=== PATIENT | female | born 1975 | race Caucasian/White ===

== ENCOUNTER 2018-10-31 09:25 | Emergency (ER) | payer BC, OTHER ==
[~2018-10-31] VITALS: Ht 177.8 cm; Wt 70.3 kg
[2018-10-31 10:08] LABS: ABSOLUTE NEUTROPHILS 6.5 thou/uL (1.4-8.2); BASOPHILS 1.1 % (0.0-2.0); CALCIUM 8.6 mg/dL (8.5-10.1); CREATININE 0.9 mg/dL (0.6-1.0); EOSINOPHILS 1.9 % (0.0-3.0); HEMATOCRIT 42.5 % (37.0-47.0); HEMOGLOBIN 14.4 gm/dL (12.0-15.0); LYMPHOCYTES 19.8 % (24.0-44.0); MCH 31.4 pg (26.0-34.0); MCHC 33.8 g/dL (28.0-37.0); MCV 92.9 fL (80.0-100.0); PLATELET COUNT 308 thou/uL (150-400); POLYS 69.2 % (36.0-66.0); POTASSIUM 3.6 mmol/L (3.5-5.1); RBC 4.58 mil/uL (4.20-5.00); RDW 13.4 % (10.5-14.5); WBC 9.4 thou/uL (4.0-11.0)
[2018-10-31 10:14] LABS: ALBUMIN 3.3 g/dL (3.4-5.0); TOTAL BILIRUBIN 0.3 mg/dL (<0.1-1.0)
[2018-10-31 13:20] VITALS: BP 109/68
[2018-10-31] MEDS ORDERED: AUGMENTIN 875-1 EACH PO (13:20)
[2018-10-31] MEDS ORDERED: ULTRAM 50MG TAB50 MG PO (13:27)
--- NOTE | 2018-10-31 16:42 | EKG ---
[address] [address] ELECTROCARDIOGRAM REPORT Name: DAPHNECLAUDIACASTRO Gabo Room #: DEP [facility]#: [id number] ������������������ Admission: 10/31/18 ������������������ Attend Phys: Discharge: 10/31/18 ������������������ Date of : 79 Report #: [id number] ����������������������������������������������������������������� [id number] THIS REPORT FOR: //name// [facility] ED Test Date: 2018-10-31 Test Time: 10:08:17 Pat Name: CASTRO CENTENO Department: Room: Gender: F [employer]: ne : 1975 Requested By: Ava Lewis Order Number: [id number] MD: Tanner Good Measurements Intervals [place] Rate: 59 P: 26 SD: 132 QRS: 70 QRSD: 89 T: 37 QT: 398 QTc: 395 Interpretive Statements Sinus rhythm No previous ECG available for comparison Electronically Signed On 10-31-2018 16:42:18 CDT by Tanner Good [email or web address] ��������������������������������������������� <ELECTRONICALLY SIGNED> ���������������������������������������� By: Tanner Good MD ��������������������������������������������� 10/31/18 1642 1008 1008 Tanner Good MD /PERICO
== END 2018-10-31 13:36 | disposition home or self-care (01) ==
LOC: ER 09:25
PROVIDERS: Emergency Medicine Emergency Medical Services
DX: K52.9 Noninfective gastroenteritis and colitis, unspecified (principal); F17.210 Nicotine dependence, cigarettes, uncomplicated; N80.9 Endometriosis, unspecified